=== PATIENT | male | born 1970 | race Caucasian/White ===

== ENCOUNTER 2019-05-14 15:19 | Emergency (ER) | payer BC ==
[~2019-05-14] VITALS: Ht 177.8 cm; Wt 79.4 kg
[2019-05-14 15:29] VITALS: BP 121/73
--- NOTE | 2019-05-14 15:37 | NUR ---
SEEN AND EXAMINED BY CLOVER MATHUR
--- NOTE | 2019-05-14 15:43 | NUR ---
Patient discharged to home in stable condition. Written and verbal after care instructions given. Patient verbalizes understanding of instruction.
== END 2019-05-14 15:45 | disposition home or self-care (01) ==
LOC: ER 15:24
DX: J06.9 Acute upper respiratory infection, unspecified (principal); F17.210 Nicotine dependence, cigarettes, uncomplicated